=== PATIENT | male | born 1950 | race Caucasian/White ===

== ENCOUNTER → 2018-01-31 | Outpatient (CLI) | payer OTHER ==
--- NOTE | 2018-01-31 15:46 | PCVCIMAG ---
APPROVED REPORT Study performed: 01/31/2018 13:39:43 Exam: Stress Echocardiogram Indication: CAD s/p CABG x4 (2000), Hyperlipidemia, Hypertension Patient Location: Echo lab Stress Nurse: Kaitlin Rajput RN Status: routine Ht: 5 ft 11 in HR: 66 bpm BP: 152/74 mmHg Rhythm: NSR, RBBB Procedure The patient underwent an Exercise Stress Test using the Kit Protocol. Blood pressure, heart rate, and EKG were monitored. An Echocardiogram was performed by marine fisheries technician in four stages in quad fashion. At peak stress, four selected images were obtained and placed side by side with resting images for comparison. Stress Test Details Stress Test: Exercise stress testing was performed using a Kit protocol. HR Resting HR: 66 bpmMax Heart Rate (APMHR): 152 bpm Max HR Achieved: 123 bpmTarget HR (85% APMHR): 129 bpm % of APMHR: 80 Recovery HR: 81 bpm HR response to stress: Normal HR response to stress BP Resting BP: 152/74 mmHg Max BP: 200/88 mmHg Recovery BP: 144/76 mmHg BP response to stress: Normal blood pressure response to stress. ECG Resting ECG: Sinus Rhythm, RBBB Stress ECG: Sinus Rhythm, RBBB Recovery ECG: Sinus Rhythm, RBBB Clinical Reason for Termination: Maximal effort Exercise duration: 7 min 01 sec Highest Stage Achieved: Stage 3: 3.4 mph at 14% grade. Exercise capacity: 10.10 METs Overall Exercise Capacity for Age: Normal Stress ECG Conclusion ECG: Non-ischemic Clinical: Non-ischemic Pre-Stress Echo The resting Echocardiogram showed normal left ventricular contractility with an estimated Ejection Fraction of about >55%. Normal wall motion in all segments on baseline images. Post-Stress Echo The stress Echocardiogram showed normal left ventricular contractility with an estimated Ejection Fraction of about 60-65%. Normal augmentation of wall motion in all segments on post stress images. Clinical No clinical or ECG evidence for ischemia. Conclusion Clinical Response: Non-ischemic Exercise Capacity: Average Stress ECG Response: Non-ischemic Stress Echo Images: Non-ischemic The left ventricle is normal in size and wall thickness in both the rest and stress images. 1. Low Risk Study Other Information Study Quality: Adequate <Conclusion> The left ventricle is normal in size and wall thickness in both the rest and stress images. 1. Low Risk Study
== END | disposition home or self-care (01) ==
LOC: PCVCIMAG 13:44
PROVIDERS: ATTEND Internal Medicine
DX: I10 Essential (primary) hypertension (principal); E78.5 Hyperlipidemia, unspecified; R06.02 Shortness of breath; Z95.1 Presence of aortocoronary bypass graft
CPT/HCPCS: 93325; 93351